=== PATIENT | female | born 1950 | race Caucasian/White ===

== ENCOUNTER 2019-03-08 13:06 | Inpatient (IN) | payer OTHER ==
[~2019-03-08] VITALS: Ht 152.4 cm; Wt 87.5 kg
[2019-03-08] MEDS ORDERED: SODIUM CHLORIDE 0.9% 1,000 ML IV ONE ×2 (14:27→23:00)
[2019-03-08] MEDS ORDERED: MAGNESIUM/ALUMINUM HYDROXIDE/SIMETHICONE 30ML UDC PO STA (14:27)
[2019-03-08] MEDS ORDERED: ONDANSETRON HCL 4MG/2ML INJ IV STA (14:27)
[2019-03-08] MEDS ORDERED: FAMOTIDINE 20MG/2ML VIAL IV STA (14:27)
[2019-03-08 14:53] LABS: HEMATOCRIT. 33.4 % (36.0-48.0); MEAN CORPUSCULAR HEMOGLOBIN 29.2 pg (28.0-32.0); MEAN CORPUSCULAR VOLUME 88.5 fL (81.0-99.0); MEAN PLATELET VOLUME 7.5 fl (7.4-10.4); PLATELET 256 x1000/uL (130-400); RED BLOOD CELL COUNT 3.77 mill/uL (4.2-5.4); RED CELL DISTRIBUTION WIDTH 16.5 % (11.6-14.6)
[2019-03-08 15:00] LABS: INR 1.1
[2019-03-08 15:02] LABS: CHLORIDE 102 mEq/L (98-107)
[2019-03-08 16:18] LABS: PLATELET ESTIMATE NORMAL
[2019-03-08 16:57] LABS: CLARITY URINE CLEAR (CLEAR); COLOR URINE YELLOW (YELLOW); KETONES URINE NEGATIVE (NEGATIVE); LEUKOCYTE ESTERASE URINE NEGATIVE (NEGATIVE); NITRITE URINE NEGATIVE (NEGATIVE); OCCULT BLOOD URINE NEGATIVE (NEGATIVE); PH URINE 7.5 (4.5-8.0); PROTEIN URINE NEGATIVE (NEGATIVE); SPECIFIC GRAVITY URINE 1.015 (1.005-1.030); UROBILINOGEN URINE 0.2 E.U./dL (0.2-1.0)
[2019-03-08] MEDS ORDERED: SODIUM CHLORIDE 0.9% 1000ML BAG (SEPSIS BOLUS) IV ONE (19:15)
[2019-03-08] MEDS ORDERED: LEVOFLOXACIN 750MG PREMIX 150 ML IV ONE (19:15)
[2019-03-08] MEDS ORDERED: ACETAMINOPHEN 325MG TABLET PO ONE (19:15)
[2019-03-08] MEDS ORDERED: ASPIRIN 325MG EC TABLET PO ONE (20:45)
[2019-03-08] MEDS ORDERED: ACETAMINOPHEN 325MG TABLET PO PRN (23:00)
[2019-03-08] MEDS ORDERED: CLONIDINE 0.1MG TABLET PO PRN (23:00)
[2019-03-08] MEDS ORDERED: GUAIFENESIN 200MG/10ML SUGAR FREE UDC PO PRN (23:00)
[2019-03-08] MEDS ORDERED: DOCUSATE SODIUM 100MG CAPSULE PO PRN (23:00)
[2019-03-08] MEDS ORDERED: ONDANSETRON HCL 4MG/2ML INJ IV PRN (23:00)
[2019-03-08] MEDS ORDERED: MAGNESIUM/ALUMINUM HYDROXIDE/SIMETHICONE 30ML UDC PO PRN (23:00)
[2019-03-08] MEDS ORDERED: CEFTRIAXONE 1 G PREMIX 50 ML IV NR (23:09)
[2019-03-08] MEDS ORDERED: AZITHROMYCIN 500 MG in DEXT 5% WATER 250 ML IV NR (23:10)
[2019-03-09] VITALS (7 sets, daily range): BP systolic 91–118; BP diastolic 28–49
[2019-03-09] MEDS ORDERED: SODIUM CHLORIDE 0.45% 1,000 ML IV SCH (01:06)
[2019-03-09] MEDS ORDERED: OMEP10CA5 PO (01:26)
[2019-03-09] MEDS ORDERED: METF-414 PO (01:26)
[2019-03-09] MEDS ORDERED: ASPI-1393 PO (01:26)
[2019-03-09] MEDS ORDERED: DIPH50CA47 PO (01:35)
[2019-03-09] MEDS ORDERED: AZITHROMYCIN 500 MG in DEXT 5% WATER 250 ML IV SCH (02:00)
[2019-03-09] MEDS ORDERED: DEXTROSE 50% WATER 50ML SYRINGE IV PRN (05:45)
[2019-03-09] MEDS ORDERED: BLOOD SUGAR DIAGNOSTIC STRIP TEST SCH (06:45)
[2019-03-09] MEDS ORDERED: INSULIN LISPRO 100 UNITS/ML SUBCUT SCH (07:15)
[2019-03-09 07:19] LABS: CHLORIDE 105 mEq/L (98-107)
[2019-03-09 07:24] LABS: BASOPHILS % 0.5 % (0.0-2.0); EOSINOPHILS % 0.1 % (0.0-5.0); HEMATOCRIT. 31.2 % (36.0-48.0); HEMOGLOBIN. 10.1 g/dL (12.0-16.0); LYMPHOCYTES % 10.3 % (20.0-50.0); MEAN CORPUSCULAR HEMOGLOBIN 29.1 pg (28.0-32.0); MEAN CORPUSCULAR VOLUME 89.7 fL (81.0-99.0); MEAN PLATELET VOLUME 7.8 fl (7.4-10.4); MONOCYTES % 3.1 % (2.0-8.0); PLATELET 214 x1000/uL (130-400); RED BLOOD CELL COUNT 3.48 mill/uL (4.2-5.4); RED CELL DISTRIBUTION WIDTH 16.1 % (11.6-14.6)
[2019-03-09] MEDS ORDERED: ENOXAPARIN 40MG/0.4ML SYR SUBCUT SCH (09:00)
[2019-03-09] MEDS ORDERED: AMLODIPINE 10MG TABLET PO SCH (09:00)
[2019-03-09] MEDS ORDERED: PNEUMOCOCCAL 23-VAL P-SAC VAC 0.5 ML IM ONE (12:00)
[2019-03-09] MEDS ORDERED: CEFTRIAXONE 1 G PREMIX 50 ML IV SCH (23:00)
== END 2019-03-09 16:21 | disposition home or self-care (01) | DRG 194 ==
LOC: ER 13:12 → EDBEDREQ 21:17 → EDBEDREQTM 21:17 → ENRESERV 23:16 → 5WST 03-09 00:54
PROVIDERS: ADMIT Hospitalist; ATTEND Hospitalist
DX: J18.9 Pneumonia, unspecified organism (principal); G93.40 Encephalopathy, unspecified; E11.9 Type 2 diabetes mellitus without complications; I10 Essential (primary) hypertension; I25.10 Atherosclerotic heart disease of native coronary artery without angina pectoris
CPT/HCPCS: 36415; 71045; 82962; 83605; 84484; 87493; 90732; 93005; 93970; 96365; 96375; 99285; J0456; J0696; J1650; J1815; J1956; J2405; J3490; J7030; J7060